=== PATIENT | male | born 1945 | race Caucasian/White ===

== ENCOUNTER 2019-04-13 10:43 | Outpatient (CLI) | payer MEDICARE, OTHER, SELFPAY ==
[2019-04-13 13:26] LABS: Basophils % 0.4 %; Eosinophils # 0.2 10^3/uL (0.0-0.8); Eosinophils % 2.7 %; Hematocrit 38.8 % (42.0-52.0); Hemoglobin 12.3 g/dL (11.7-16.6); Lymphocytes % 13.9 %; Mean Corpuscular HGB Conc 31.7 g/dL (30.0-36.0); Mean Corpuscular Hemoglobin 30.3 pg (28.0-34.0); Mean Corpuscular Volume 95.6 fL (80-94); Mean Platelet Volume 9.4 fL (7.4-10.4); Monocytes # 0.7 10^3/uL (0.2-0.9); Monocytes % 9.7 %; Neutrophils # 5.2 10^3/uL (1.8-7.7); Neutrophils % 72.9 %; Nucleated Red Blood Cells % 0 %; Platelet Count 191 10^3/cmm (130-400); Red Blood Count 4.06 10^6/uL (4.1-5.3); Red Cell Distribution Width 14.3 % (12.1-15.1); White Blood Count 7.1 10^3/uL (4.0-10.0)
[2019-04-13 13:38] LABS: Carcinoembryonic Antigen 2.4 ng/mL (0.0-4.7); Thyroid Stimulating Hormone 1.93 uIU/mL (0.27-4.20)
[2019-04-13 13:59] LABS: Alanine Aminotransferase 23 U/L (0-41); Albumin Level 3.5 g/dL (3.5-5.2); Alkaline Phosphatase 183 IU/L (40-130); Anion Gap 13.9 (5-19); Aspartate Amino Transferase 23 U/L (0-40); Blood Urea Nitrogen 14 mg/dL (8-23); Calcium 9.3 mg/dL (8.5-10.5); Carbon Dioxide 27 mmol/L (22-29); Chloride 102 mmol/L (98-107); Globulin 3.3 g/dL (1.3-4.6); Glucose 96 mg/dL (74-106); Potassium 3.9 mmol/L (3.5-5.1); Sodium 139 mmol/L (136-145); Total Bilirubin 0.6 mg/dL (0.15-1.2); Total Protein 6.8 g/dL (6.6-8.7)
[2019-04-13 14:06] LABS: Cancer Antigen 19 9 9.84 U/mL (0-35)
== END 2019-04-13 10:44 | disposition home or self-care (01) ==
LOC: ONCMED 10:47
PROVIDERS: Family Provider Internal Medicine; PCP Internal Medicine; Visit Provider Nurse Practitioner
DX: C23 Malignant neoplasm of gallbladder (principal); C78.7 Secondary malignant neoplasm of liver and intrahepatic bile duct; C77.2 Secondary and unspecified malignant neoplasm of intra-abdominal lymph nodes; E78.5 Hyperlipidemia, unspecified; I25.10 Atherosclerotic heart disease of native coronary artery without angina pectoris; I34.0 Nonrheumatic mitral (valve) insufficiency; I48.91 Unspecified atrial fibrillation; I11.0 Hypertensive heart disease with heart failure; I50.9 Heart failure, unspecified; J44.9 Chronic obstructive pulmonary disease, unspecified; K21.9 Gastro-esophageal reflux disease without esophagitis; N40.0 Benign prostatic hyperplasia without lower urinary tract symptoms; Z86.73 Personal history of transient ischemic attack (TIA), and cerebral infarction without residual deficits; Z87.891 Personal history of nicotine dependence; Z90.49 Acquired absence of other specified parts of digestive tract; Z92.21 Personal history of antineoplastic chemotherapy; G89.29 Other chronic pain; M47.814 Spondylosis without myelopathy or radiculopathy, thoracic region; Z95.5 Presence of coronary angioplasty implant and graft; Z79.01 Long term (current) use of anticoagulants; Z79.891 Long term (current) use of opiate analgesic; Z79.899 Other long term (current) drug therapy
CPT/HCPCS: 36591; 80053; 82378; 84443; 85025; 86301; 99214

== ENCOUNTER 2019-05-17 13:39 | Outpatient (CLI) | payer MEDICARE, OTHER, SELFPAY ==
[2019-05-17] MEDS: alteplase 1 mg/mL SDV 2 mL 2 MG IV (13:58)
== END 2019-05-17 13:40 | disposition home or self-care (01) ==
LOC: ONCMED 13:39
PROVIDERS: Family Provider Internal Medicine; PCP Internal Medicine; Visit Provider Nurse Practitioner
DX: T82.594A Other mechanical complication of infusion catheter, initial encounter (principal); Y80.1 Therapeutic (nonsurgical) and rehabilitative physical medicine devices associated with adverse incidents
CPT/HCPCS: 36593; 96374; J2997

== ENCOUNTER 2019-06-17 13:11 | Outpatient (CLI) | payer MEDICARE, OTHER, SELFPAY | END 2019-06-17 13:12 | disposition home or self-care (01) | LOC: ONCMED 13:11 | PROVIDERS: Family Provider Internal Medicine; PCP Internal Medicine; Visit Provider Nurse Practitioner | DX: Z45.2 Encounter for adjustment and management of vascular access device (principal) | CPT/HCPCS: 96523 ==

== ENCOUNTER 2019-07-19 14:29 | Outpatient (CLI) | payer OTHER, MEDICARE, SELFPAY | END 2019-07-19 14:30 | disposition home or self-care (01) | LOC: ONCMED 14:31 | PROVIDERS: PCP Internal Medicine; Visit Provider Nurse Practitioner | DX: Z45.2 Encounter for adjustment and management of vascular access device (principal); C23 Malignant neoplasm of gallbladder; C78.7 Secondary malignant neoplasm of liver and intrahepatic bile duct; D64.81 Anemia due to antineoplastic chemotherapy | CPT/HCPCS: 96523 ==

== ENCOUNTER 2019-08-19 12:31 | Outpatient (CLI) | payer MEDICARE, OTHER, SELFPAY | END 2019-08-19 12:32 | disposition home or self-care (01) | LOC: ONCMED 12:35 | PROVIDERS: PCP Internal Medicine; Visit Provider Nurse Practitioner | DX: Z45.2 Encounter for adjustment and management of vascular access device (principal); C23 Malignant neoplasm of gallbladder; C78.7 Secondary malignant neoplasm of liver and intrahepatic bile duct; D64.81 Anemia due to antineoplastic chemotherapy | CPT/HCPCS: 96523 ==

== ENCOUNTER 2019-10-01 09:03 | Outpatient (CLI) | payer MEDICARE, OTHER, SELFPAY ==
--- NOTE | 2019-10-01 10:16 | ONC FU_ITS ---
Dr. Lundberg Patient Follow-Up Note Patient: Foster Durán Unit #: [id number]: 1945 Dicatated By: Erwin Lundberg M.D.Date of Visit:Oct 01, 2019 Onc Med Follow-up/Prog Note Chief Complaint: Gallbladder cancer. History of Present Illness: This is a 72-year-old man with adenocarcinoma of the gallbladder, stage IIIB (T2b, N1, M0) at initial diagnosis in November 2017, but with subsequent progression to stage IV (M1). On 11/27/2017 he underwent laparoscopic cholecystectomy in [place], [place]. I do not have those records available, but the reports from Dr. Ortega indicate that he was incidentally found to have a T2b gallbladder adenocarcinoma. He was then referred to Dr. Ortega. His further evaluation with PET/CT on 12/08/2017 showed hypermetabolic activity in the hepatic parenchyma adjacent to the gallbladder fossa concerning for active malignancy. Bilateral adrenal nodules were noted to be FDG negative, as was a left lower lobe pulmonary nodule. Given those findings on 02/06/2018 he underwent exploratory laparotomy with partial hepatectomy, resection of port sites, omental pedicle flap, portal lymph node dissection, and partial omentectomy. Pathology showed metastatic adenocarcinoma in 1 portal lymph nodes with extracapsular extension present. The partial hepatectomy specimen was negative for malignancy. There was no evidence of involvement at the epigastric, right upper quadrant, and umbilical port sites. A falciform nodule biopsy showed organizing hematoma. I had seen him initially on 03/25/2018. He still had marginal performance status following his surgery, and with his multiple underlying comorbidities I did not recommend adjuvant chemotherapy. His surveillance CT scans of the chest, abdomen, and pelvis on 07/02/2018 showed a 7 mm noncalcified nodule in the left lung base posteriorly. There were innumerable very small nodules throughout both lungs measuring in the range of 1-3 mm, many of which were noted be calcified. The pattern was felt to be suggestive of old granulomatous disease. There was mild mediastinal and right hilar adenopathy noted and multiple subcentimeter mediastinal lymph nodes also were noted. A precarinal lymph node measured 1.2 cm and 3 right hilar lymph nodes were closely adjacent, the largest measuring up to 1.0 cm. Subcentimeter left hilar and subcarinal lymph nodes also were seen. The abdomen showed a new hypodense lesion in the liver at the chacho hepatis measuring 4.8 x 3.3 cm, suspicious for metastatic disease. There is no abdominal or pelvic adenopathy. There were diffuse degenerative changes throughout the thoracic and lumbar spine. Further evaluation with PET/CT on 07/15/2018 showed intense activity within the left hepatic lobe lesion, SUV 9.9, consistent with hepatic metastasis. There were no other areas of metastatic involvement noted on that study. Multiple subcentimeter bilateral pulmonary nodules were too small to evaluate with PET. I had seen him for a follow-up visit on 07/17/2018. A next generation sequencing study showed no targetable mutations. The tumor was found to be MSI stable with intermediate mutation burden. It was negative for PD-L1 expression. He was agreeable to a trial of chemotherapy with cisplatin/gemcitabine. He began cycle 1 on 07/30/2018. He tolerated it with acceptable toxicity, and he continued with cycle 2 on 08/20/2018 and was cycle 3 on 09/09/2018. Restaging CT scans of the chest, abdomen, and pelvis on 09/29/2018 showed unchanged left lower lobe pulmonary nodule measuring 8 mm. A low-attenuation lesion involving the gallbladder appeared stable compared to the June 2018 study, felt to be indeterminate, but with metastatic disease not excluded. Bilateral adrenal nodules appeared unchanged. There was no new adenopathy or other evidence of disease progression. He continued with cycle 4 of cisplatin/gemcitabine on 10/08/2018. Restaging PET/CT on 10/31/2018 showed no change in the hepatic lesion compared to the prior study. Left lower lobe pulmonary nodules were unchanged. With that finding, he was referred to Dr. Ortega, and he underwent directed therapy with Y90 to the left hepatic artery on 12/17/2018 and radioembolization of the right hepatic artery on 01/28/2019. Restaging CT abdomen/pelvis on 05/25/2019 showed evidence of response in the liver and no areas of disease progression. He continued on observation/expectant management. His other medical illnesses include hypertension, dyslipidemia, coronary artery disease, mitral regurgitation, atrial fibrillation, congestive heart failure, carotid stenosis, COPD, GERD, and benign prostatic hypertrophy. He suffered a left hemispheric stroke in February 2018. He has undergone multiple coronary angioplasty procedures and he underwent left carotid artery stent placement in 2018. He has a history of smoking 1 pack of cigarettes daily for 40 years. He quit smoking in 2014. INTERIM HISTORY: Restaging CT of the abdomen/pelvis on 09/20/2019 showed stable subcentimeter left-sided pulmonary nodules, but with development of some new, small subcentimeter nodules, felt to be indeterminate but with neoplastic disease not excluded. There was interval appearance of borderline left hilar lymph nodes. A soft tissue nodule within the right upper quadrant mesentery measured 13 mm compared to 5 mm on the prior study, worrisome for progressive metastatic disease. There was slight interval enlargement of the dominant hepatic mass within segment 4B as well as interval enlargement of a nodule within segment 5. There was interval development of a new segment 4A nodule measuring approximately 10 mm. The findings were suspicious for slight progression of hepatic metastases. He is seen for a followup visit. He says he feels pretty good. He does have somewhat limited activity, but he is able to do light work when it is not too hot. ECOG score is 1. He has good appetite. He has not had fever. He does have some night sweating, but not as bad. He has been having pain in his lower back area. It has been an ongoing problem since this thing started . He also has pain in his abdomen on the right side. It occurs intermittently, and when he gets to bothering him enough he takes his antibiotic for a few days and it tends to clear up. He has no other GI or complaints. He does have shortness of breath, which he manages adequately with an inhaler. He also has some cough. He does not complain of chest pain. He has no other joint or bone pain. He very seldom has headache. He sometimes has dizziness after he takes his medication. He does not have numbness/paresthesia or other focal neurologic symptoms. Medications: ALPRAZolam 1 Tablet (of 0.25 mg) Oral PRN, AmLODIPine Besylate 1 Tablet (of 5 mg) Oral b.i.d. PRN, Digoxin 1 Tablet (of 125 mcg) Oral daily, Eliquis 1 Tablet (of 5 mg) Oral b.i.d., Finasteride 1 Tablet (of 5 mg) Oral daily, HYDROcodone-Acetaminophen 1 Tablet (of 7.5-325 mg) Oral q 6 hours PRN, Lisinopril 1 Tablet (of 10 mg) Oral b.i.d., Metoprolol Tartrate 2 Tablet (of 50 mg) Oral b.i.d., Nitroglycerin 1 Tablet (of 0.4 mg) Tablet, sublingual Sublingual PRN, Symbicort 1 puff(s) (of 160-4.5 mcg/act) Aerosol Inhalation b.i.d., Tamsulosin HCl 1 Capsule (of 0.4 mg) Oral b.i.d., Ventolin HFA 1 puff(s) (of 108 (90 base) mcg/act) Aerosol, solution Inhalation PRN Allergies: Statins Review of Systems: Constitutional - He has limited activity, but he is able to do light work. His appetite is good. He has lost about 10 pounds. He has not had fever. He does have some sweating at night, but not as bad. ECOG score is 1, ENMT - No sinus congestion/drainage. He sometimes has sore mouth. No sore throat or difficulty swallowing, Hematologic/Lymphatic - No abnormal bruising or bleeding, Respiratory - He has shortness of breath and cough. No pleuritic pain or hemoptysis, Cardiovascular - No angina pain. No palpitations, Gastrointestinal - He has pain on the right side of the abdomen. No nausea or vomiting. He has some acid reflux. No diarrhea or constipation. No blood in the stool or black stools, Genitourinary (M) - No dysuria or hematuria. No urinary frequency. No urgency or incontinence, Musculoskeletal - He has lower back pain, Integumentary - No skin rash, Neurologic - He very seldon has headache. He sometimes has dizziness after taking his medications. No numbness or tingling. No other focal neurologic symptoms, Psychiatric - No anxiety or depression. No insomnia. Vital Signs: Performed on Oct 01, 2019 09:15 Height - 74.00 in Weight - 247.6 lbs (LOW) BSA - 2.38 sq.m BMI - 31.79 (HIGH) Temperature - 97.1 F (LOW) Pulse - 82 /min Respiration - 18 /min BP - 155/88 mm(hg) (HIGH) O2 Sat - 96 % Pain - 0 Physical Examination: Constitutional - He looks pretty good generally, Eyes - Sclerae nonicteric. Conjunctivae clear, ENMT - No lesions noted in the oral cavity, Hematologic/Lymphatic - No cervical, clavicular, or axillary adenopathy, Respiratory - Lungs are clear with diminished air movement bilaterally, Cardiovascular - Heart rhythm is irregular. There is a II/ systolic murmur. There is no gallop or rub noted. , Abdomen - Mildly distended. There is mild tenderness on the right side medially. Liver and spleen are not enlarged. There is no abdominal mass or ascites noted and there is no inguinal adenopathy, Extremities - No edema. There are a few scattered purpuric lesions on the arms, Integumentary - No skin eruption, Neurologic - There are no focal neurologic deficits noted. Impression: 1. Patient with adenocarcinoma of the gallbladder, initially stage IIB (T2, N1, M0) at laparoscopic cholecystectomy on 11/27/2017. 2. He underwent exploratory laparotomy with partial hepatectomy, resection of port sites, partial omenectomy, and portal lymph node dissection on 02/06/2018. Pathology showed involvement in 1/1 lymph nodes with extracapsular extension, but it was otherwise negative. His next generation sequencing study showed no targeted both mutations. The tumor was MSI stable with low PD-L1 expression. 3. His postoperative course was complicated by left temporal parietal stroke on 02/18/2018. His other medical illnesses include: 4. Hypertension. 5. Dyslipidemia. 6. Coronary artery disease with previous myocardial infarction and multiple angioplasty/stent procedures. 7. Atrial fibrillation. 8. Mitral regurgitation. 9. Congestive heart failure. 10. Carotid stenosis with previous left carotid stent placement. 11. COPD. 12. GERD. 13. Benign prostatic hypertrophy. His surveillance CT scans on 07/02/2018 showed a new low attenuation lesion within the liver at the chacho hepatis measuring 4.8 x 3.3 cm, suspicious for metastasis. The lesion was found to be FDG avid by PET, SUV 9.9, also suspicious for metastasis. There were no other areas of abnormal uptake on that study. Multiple small bilateral pulmonary nodules were too small to characterize by PET, but felt to most likely reflect old granulomatous disease. He underwent a course of chemotherapy with 4 cycles of cisplatin/gemcitabine from July through October 2016. He tolerated the treatment very well. Restaging PET/CT on 10/31/2018 showed no change in the hepatic lesion compared to the prior study. Left lower lobe pulmonary nodules were unchanged. With that finding, he was referred to Dr. Ortega, and he underwent liver directed therapy with Y90 to the left hepatic artery on 12/17/2018 and radioembolization of the right hepatic artery on 01/28/2019. Restaging CT abdomen/pelvis on 05/25/2019 showed evidence of response in the liver and no areas of disease progression. His restaging CT abdomen/pelvis on 09/20/2019 was suspicious for disease progression with development of some new, small, subcentimeter pulmonary nodules in the left lung, development of borderline left hilar lymphadenopathy, increase in size of a mesenteric soft tissue nodule, slight progression of the previously treated hepatic lesions, and development of a new segment 4A nodule measuring 10 mm. Plan: The CT findings were reviewed with the patient and his , and we discussed the clinical implications. While the findings are somewhat subtle, taken together they are very suspicious for disease progression. He would still appear, though, to have a low burden of disease, and it is unlikely to be the cause of his symptoms. Nonetheless, in the setting of metastatic disease which is now progressing, his disease is incurable and any further treatment will be palliative. As such, I do not feel there is any urgency about starting a second line chemotherapy. The best options would either be modified FOLFOX or oxaliplatin/Xeloda. I reviewed potential side effects, including the expected neuropathy with oxaliplatin. At least for now I would like to request the CT disks for review, and we can then determine whether to go ahead and start second line chemotherapy within the timeframe of the next 2 to 3 weeks or just monitor his disease closely with a repeat CT scan in 1 to 2 months. Signed By: Erwin Lundberg M.D. <<Signature on File>>
== END 2019-10-01 09:04 | disposition home or self-care (01) ==
LOC: ONCMED 09:07
PROVIDERS: PCP Internal Medicine; Visit Provider Internal Medicine Medical Oncology
DX: C23 Malignant neoplasm of gallbladder (principal); C78.7 Secondary malignant neoplasm of liver and intrahepatic bile duct; D64.81 Anemia due to antineoplastic chemotherapy; E78.5 Hyperlipidemia, unspecified; I25.10 Atherosclerotic heart disease of native coronary artery without angina pectoris; I25.2 Old myocardial infarction; I48.91 Unspecified atrial fibrillation; I34.0 Nonrheumatic mitral (valve) insufficiency; I50.9 Heart failure, unspecified; J44.9 Chronic obstructive pulmonary disease, unspecified; K21.9 Gastro-esophageal reflux disease without esophagitis; N40.0 Benign prostatic hyperplasia without lower urinary tract symptoms; Z95.5 Presence of coronary angioplasty implant and graft; Z45.2 Encounter for adjustment and management of vascular access device; Z90.49 Acquired absence of other specified parts of digestive tract; R91.8 Other nonspecific abnormal finding of lung field; I11.0 Hypertensive heart disease with heart failure; Z86.73 Personal history of transient ischemic attack (TIA), and cerebral infarction without residual deficits; Z87.891 Personal history of nicotine dependence; Z79.891 Long term (current) use of opiate analgesic; R59.0 Localized enlarged lymph nodes
CPT/HCPCS: 96523; 99214

== ENCOUNTER 2019-10-28 13:38 | Outpatient (CLI) | payer MEDICARE, SELFPAY | END 2019-10-28 13:39 | disposition home or self-care (01) | LOC: ONCMED 13:41 | PROVIDERS: PCP Internal Medicine; Visit Provider Nurse Practitioner | DX: Z45.2 Encounter for adjustment and management of vascular access device (principal) | CPT/HCPCS: 96523 ==

== ENCOUNTER 2019-12-09 13:01 | Outpatient (CLI) | payer MEDICARE, OTHER, SELFPAY ==
[2019-12-09 14:53] LABS: Basophils # 0.1 10^3/uL (0.0-0.1); Basophils % 0.7 %; Eosinophils # 0.2 10^3/uL (0.0-0.8); Eosinophils % 2.4 %; Hematocrit 41.6 % (42.0-52.0); Hemoglobin 13.1 g/dL (11.7-16.6); Lymphocytes # 0.9 10^3/uL (0.8-4.8); Lymphocytes % 12.6 %; Mean Corpuscular HGB Conc 31.5 g/dL (30.0-36.0); Mean Corpuscular Hemoglobin 31.4 pg (28.0-34.0); Mean Corpuscular Volume 99.8 fL (80-94); Monocytes # 0.7 10^3/uL (0.2-0.9); Monocytes % 10.1 %; Neutrophils % 73.9 %; Nucleated Red Blood Cells % 0 %; Platelet Count 189 10^3/cmm (130-400); Red Blood Count 4.17 10^6/uL (4.1-5.3); Red Cell Distribution Width 14.1 % (12.1-15.1)
[2019-12-09 15:40] LABS: Alanine Aminotransferase 121 U/L (0-41); Albumin Level 3.4 g/dL (3.5-5.2); Alkaline Phosphatase 464 IU/L (40-130); Anion Gap 12.7 (5-19); Aspartate Amino Transferase 106 U/L (0-40); Blood Urea Nitrogen 14 mg/dL (8-23); Calcium 8.5 mg/dL (8.5-10.5); Carbon Dioxide 27 mmol/L (22-29); Chloride 104 mmol/L (98-107); Glucose 107 mg/dL (65-115); Osmolality Calculated 291 mOsm/kg (285-295); Potassium 3.7 mmol/L (3.5-5.1); Sodium 140 mmol/L (136-145); Thyroid Stimulating Hormone 0.96 uIU/mL (0.27-4.20); Total Bilirubin 2.9 mg/dL (0.15-1.2); Total Protein 6.4 g/dL (6.6-8.7); Vitamin B12 755 pg/mL (232-1245)
--- NOTE | 2019-12-12 11:50 | ONC FU_ITS ---
Dr. Lundberg Patient Follow-Up Note Patient: Foster Durán Unit #: [id number]: 1945 Dicatated By: Erwin Lundberg M.D.Date of Visit:Dec 09, 2019 Onc Med Follow-up/Prog Note Chief Complaint: Gallbladder cancer. History of Present Illness: This is a 73 year-old man with adenocarcinoma of the gallbladder, stage IIIB (T2b, N1, M0) at initial diagnosis in November 2017, but with subsequent progression to stage IV (M1). On 11/27/2017 he underwent laparoscopic cholecystectomy in [place], [place]. I do not have those records available, but the reports from Dr. Ortega indicate that he was incidentally found to have a T2b gallbladder adenocarcinoma. He was then referred to Dr. Ortega. His further evaluation with PET/CT on 12/08/2017 showed hypermetabolic activity in the hepatic parenchyma adjacent to the gallbladder fossa concerning for active malignancy. Bilateral adrenal nodules were noted to be FDG negative, as was a left lower lobe pulmonary nodule. Given those findings on 02/06/2018 he underwent exploratory laparotomy with partial hepatectomy, resection of port sites, omental pedicle flap, portal lymph node dissection, and partial omentectomy. Pathology showed metastatic adenocarcinoma in 1 portal lymph nodes with extracapsular extension present. The partial hepatectomy specimen was negative for malignancy. There was no evidence of involvement at the epigastric, right upper quadrant, and umbilical port sites. A falciform nodule biopsy showed organizing hematoma. I had seen him initially on 03/25/2018. He still had marginal performance status following his surgery, and with his multiple underlying comorbidities I did not recommend adjuvant chemotherapy. His surveillance CT scans of the chest, abdomen, and pelvis on 07/02/2018 showed a 7 mm noncalcified nodule in the left lung base posteriorly. There were innumerable very small nodules throughout both lungs measuring in the range of 1-3 mm, many of which were noted be calcified. The pattern was felt to be suggestive of old granulomatous disease. There was mild mediastinal and right hilar adenopathy noted and multiple subcentimeter mediastinal lymph nodes also were noted. A precarinal lymph node measured 1.2 cm and 3 right hilar lymph nodes were closely adjacent, the largest measuring up to 1.0 cm. Subcentimeter left hilar and subcarinal lymph nodes also were seen. The abdomen showed a new hypodense lesion in the liver at the chacho hepatis measuring 4.8 x 3.3 cm, suspicious for metastatic disease. There is no abdominal or pelvic adenopathy. There were diffuse degenerative changes throughout the thoracic and lumbar spine. Further evaluation with PET/CT on 07/15/2018 showed intense activity within the left hepatic lobe lesion, SUV 9.9, consistent with hepatic metastasis. There were no other areas of metastatic involvement noted on that study. Multiple subcentimeter bilateral pulmonary nodules were too small to evaluate with PET. I had seen him for a follow-up visit on 07/17/2018. A next generation sequencing study showed no targetable mutations. The tumor was found to be MSI stable with intermediate mutation burden. It was negative for PD-L1 expression. He was agreeable to a trial of chemotherapy with cisplatin/gemcitabine. He began cycle 1 on 07/30/2018. He tolerated it with acceptable toxicity, and he continued with cycle 2 on 08/20/2018 and was cycle 3 on 09/09/2018. Restaging CT scans of the chest, abdomen, and pelvis on 09/29/2018 showed unchanged left lower lobe pulmonary nodule measuring 8 mm. A low-attenuation lesion involving the gallbladder appeared stable compared to the June 2018 study, felt to be indeterminate, but with metastatic disease not excluded. Bilateral adrenal nodules appeared unchanged. There was no new adenopathy or other evidence of disease progression. He continued with cycle 4 of cisplatin/gemcitabine on 10/08/2018. Restaging PET/CT on 10/31/2018 showed no change in the hepatic lesion compared to the prior study. Left lower lobe pulmonary nodules were unchanged. With that finding, he was referred to Dr. Ortega, and he underwent directed therapy with Y90 to the left hepatic artery on 12/17/2018 and radioembolization of the right hepatic artery on 01/28/2019. Restaging CT abdomen/pelvis on 05/25/2019 showed evidence of response in the liver and no areas of disease progression. He continued on observation/expectant management. His other medical illnesses include hypertension, dyslipidemia, coronary artery disease, mitral regurgitation, atrial fibrillation, congestive heart failure, carotid stenosis, COPD, GERD, and benign prostatic hypertrophy. He suffered a left hemispheric stroke in February 2018. He has undergone multiple coronary angioplasty procedures and he underwent left carotid artery stent placement in 2018. He has a history of smoking 1 pack of cigarettes daily for 40 years. He quit smoking in 2014. INTERIM HISTORY: Restaging CT of the abdomen/pelvis on 09/20/2019 showed stable subcentimeter left-sided pulmonary nodules, but with development of some new, small subcentimeter nodules, felt to be indeterminate but with neoplastic disease not excluded. There was interval appearance of borderline left hilar lymph nodes. A soft tissue nodule within the right upper quadrant mesentery measured 13 mm compared to 5 mm on the prior study, worrisome for progressive metastatic disease. There was slight interval enlargement of the dominant hepatic mass within segment 4B as well as interval enlargement of a nodule within segment 5. There was interval development of a new segment 4A nodule measuring approximately 10 mm. The findings were suspicious for slight progression of hepatic metastases. However, as those changes did appear to be very subtle, I had recommended that we initially continue observation/expectant management. He is seen for a followup visit. He has not been feeling as good. His main complaint is he has been having a lot of stomach issues, mainly pain in his upper abdomen on the right side which radiates downward. The pain appears to be associated with with an incisional hernia in the medial right upper quadrant. It does tend to be aggravated by eating, but sometimes it lasts all day and even into the night. He has some nausea with it, but no vomiting. Bowel function has been adequate. He also has been having pain continuously in the pit of his back on both sides. That pain has been getting steadily worse. He has limited activity. ECOG score is 2. Appetite has not been good. His weight is down 5 pounds. He does not have fever. He has had some sweating at night. He has shortness of breath with activity. He also has some cough. He does not complain of chest pain. Bladder function remains adequate. He also has a little arthritis pain. He has been having headaches in the mormonism area. He occasionally has dizziness. He has no focal neurologic symptoms. Medications: ALPRAZolam 1 Tablet (of 0.25 mg) Oral PRN, AmLODIPine Besylate 1 Tablet (of 5 mg) Oral b.i.d. PRN, Digoxin 1 Tablet (of 125 mcg) Oral daily, Eliquis 1 Tablet (of 5 mg) Oral b.i.d., Finasteride 1 Tablet (of 5 mg) Oral daily, HYDROcodone-Acetaminophen 1 Tablet (of 7.5-325 mg) Oral q 6 hours PRN, Lisinopril 1 Tablet (of 10 mg) Oral b.i.d., Metoprolol Tartrate 2 Tablet (of 50 mg) Oral b.i.d., Nitroglycerin 1 Tablet (of 0.4 mg) Tablet, sublingual Sublingual PRN, Protonix 1 Capsule (of 20 mg) Tablet, enteric coated Oral daily, Symbicort 1 puff(s) (of 160-4.5 mcg/act) Aerosol Inhalation b.i.d., Tamsulosin HCl 1 Capsule (of 0.4 mg) Oral b.i.d., Ventolin HFA 1 puff(s) (of 108 (90 base) mcg/act) Aerosol, solution Inhalation PRN Allergies: Statins Review of Systems: Constitutional - His energy is not been good. He has limited activity. Appetite also has not been good. His weight is down 5 pounds. He has not had fever. He does have sweating at night. ECOG score is 2, ENMT - He has sinus congestion/drainage. No mouth sores. No sore throat or difficulty swallowing, Hematologic/Lymphatic - He has easy bruising, Respiratory - He has some shortness of breath. He has cough, which is about the same. No pleuritic pain or hemoptysis, Cardiovascular - No angina pain. No palpitations, Gastrointestinal - He has been having nausea. He has pain in his upper abdomen on the right side which radiates downward. It is worse after eating, but it can last all day and into the night. No heartburn or acid reflux. No diarrhea or constipation. No blood in the stool or black stools, Genitourinary (M) - No dysuria or hematuria. No urinary frequency. No urgency or incontinence, Musculoskeletal - He has a little arthritis pain, Integumentary - No skin rash, Neurologic - He has been having headaches in the mormonism area. He occasionally has dizziness. No numbness or tingling. No other focal neurologic symptoms, Psychiatric - He has anxiety. No depression. No insomnia. Vital Signs: Performed on Dec 09, 2019 13:05 Height - 74.00 in Weight - 242.8 lbs (LOW) BSA - 2.36 sq.m BMI - 31.17 (HIGH) Temperature - 97.7 F (LOW) Pulse - 78 /min Respiration - 24 /min BP - 169/112 mm(hg) (HIGH) O2 Sat - 96 % Pain - 6 Physical Examination: Constitutional - He still looks pretty good generally, Eyes - Sclerae nonicteric. Conjunctivae clear, ENMT - No lesions noted in the oral cavity, Hematologic/Lymphatic - No cervical, clavicular, or axillary adenopathy, Respiratory - Lungs are clear with diminished air movement bilaterally, Cardiovascular - Heart rhythm is irregular. There is a II/ systolic murmur. There is no gallop or rub noted. , Abdomen - Mildly distended. There is mild tenderness on the right upper quadrant medially in the area of an incisional hernia. Liver and spleen are not enlarged. There is no abdominal mass or ascites noted and there is no inguinal adenopathy, Back/Spine - There is bony tenderness in the lower thoracic/upper lumbar spine area, Extremities - No edema. He has chronic purpura, Integumentary - No skin eruption, Neurologic - There are no focal neurologic deficits noted. Lab/Imaging: Test performed on Dec 09, 2019 13:55 Sodium 140 mmol/L TSH 0.96 uIU/mL Vitamin B12 755 pg/mL Potassium 3.7 mmol/L Chloride 104 mmol/L CO2 27 mmol/L Anion Gap 12.7 BUN 14 mg/dL Creatinine 1.3 mg/dL Cr Clearance (Est) 86.3400 mL/min Glucose 107 mg/dL Osmolality - Calculated 291 mOsm/kg Calcium 8.5 mg/dL Protein, Total 6.4 g/dL Albumin 3.4 g/dL Globulin 3.0 g/dL Bilirubin, Total 2.9 mg/dL ALT (SGPT) 121 U/L AST (SGOT) 106 U/L Alkaline Phosphatase 464 IU/L WBC 7.0 10 3/uL RBC 4.17 10 6/uL HGB 13.1 g/dL HCT 41.6 % MCV 99.8 fL MCH 31.4 pg MCHC 31.5 g/dL RDW 14.1 % Platelet Count 189 10 3/cmm MPV 11.0 fL Neutrophils 5.20 10 3/uL Lymphocytes 0.9 10 3/uL Monocytes 0.7 10 3/uL Eosinophils 0.2 10 3/uL Basophils 0.1 10 3/uL Neutrophil % 73.9 % Lymphocyte % 12.6 % Monocyte % 10.1 % Eosinophil % 2.4 % Basophils % 0.7 % NRBC % 0 % Impression: 1. Patient with adenocarcinoma of the gallbladder, initially stage IIB (T2, N1, M0) at laparoscopic cholecystectomy on 11/27/2017. 2. He underwent exploratory laparotomy with partial hepatectomy, resection of port sites, partial omenectomy, and portal lymph node dissection on 02/06/2018. Pathology showed involvement in 1/1 lymph nodes with extracapsular extension, but it was otherwise negative. His next generation sequencing study showed no targeted both mutations. The tumor was MSI stable with low PD-L1 expression. 3. His postoperative course was complicated by left temporal parietal stroke on 02/18/2018. His other medical illnesses include: 4. Hypertension. 5. Dyslipidemia. 6. Coronary artery disease with previous myocardial infarction and multiple angioplasty/stent procedures. 7. Atrial fibrillation. 8. Mitral regurgitation. 9. Congestive heart failure. 10. Carotid stenosis with previous left carotid stent placement. 11. COPD. 12. GERD. 13. Benign prostatic hypertrophy. His surveillance CT scans on 07/02/2018 showed a new low attenuation lesion within the liver at the chacho hepatis measuring 4.8 x 3.3 cm, suspicious for metastasis. The lesion was found to be FDG avid by PET, SUV 9.9, also suspicious for metastasis. There were no other areas of abnormal uptake on that study. Multiple small bilateral pulmonary nodules were too small to characterize by PET, but felt to most likely reflect old granulomatous disease. He underwent a course of chemotherapy with 4 cycles of cisplatin/gemcitabine from July through October 2016. He tolerated the treatment very well. Restaging PET/CT on 10/31/2018 showed no change in the hepatic lesion compared to the prior study. Left lower lobe pulmonary nodules were unchanged. With that finding, he was referred to Dr. Ortega, and he underwent liver directed therapy with Y90 to the left hepatic artery on 12/17/2018 and radioembolization of the right hepatic artery on 01/28/2019. Restaging CT abdomen/pelvis on 05/25/2019 showed evidence of response in the liver and no areas of disease progression. His restaging CT abdomen/pelvis on 09/20/2019 was suspicious for disease progression with development of some new, small, subcentimeter pulmonary nodules in the left lung, development of borderline left hilar lymphadenopathy, increase in size of a mesenteric soft tissue nodule, slight progression of the previously treated hepatic lesions, and development of a new segment 4A nodule measuring 10 mm. As those changes did appear to be very subtle, I had initially recommended that we continue on observation/expectant management. Since then his abdominal pain has continued to worsen but he also now has worsening back pain. He does appear to be showing declining performance status. He also has elevated blood pressure. Plan: He will have laboratory studies and port flush today, and he will be scheduled for restaging CT scans of the chest, abdomen, and pelvis. He will have further evaluation as indicated. In the meantime, he is advised to increase metoprolol to 75 mg twice daily. Signed By: Erwin Lundberg M.D. <<Signature on File>>
== END 2019-12-09 13:02 | disposition home or self-care (01) ==
LOC: ONCMED 13:04
PROVIDERS: PCP Internal Medicine; Visit Provider Internal Medicine Medical Oncology
DX: C23 Malignant neoplasm of gallbladder (principal); C78.7 Secondary malignant neoplasm of liver and intrahepatic bile duct; D64.81 Anemia due to antineoplastic chemotherapy; T45.1X5A Adverse effect of antineoplastic and immunosuppressive drugs, initial encounter; I10 Essential (primary) hypertension; E78.5 Hyperlipidemia, unspecified; I25.10 Atherosclerotic heart disease of native coronary artery without angina pectoris; Z95.5 Presence of coronary angioplasty implant and graft; I48.91 Unspecified atrial fibrillation; I34.0 Nonrheumatic mitral (valve) insufficiency; I50.9 Heart failure, unspecified; I65.23 Occlusion and stenosis of bilateral carotid arteries; J44.9 Chronic obstructive pulmonary disease, unspecified; K21.9 Gastro-esophageal reflux disease without esophagitis; N40.0 Benign prostatic hyperplasia without lower urinary tract symptoms; Z92.21 Personal history of antineoplastic chemotherapy; Z79.899 Other long term (current) drug therapy
CPT/HCPCS: 36591; 80053; 82607; 84443; 85025; 99214

== ENCOUNTER 2019-12-15 06:13 | Outpatient (CLI) | payer MEDICARE, OTHER, SELFPAY ==
--- NOTE | 2019-12-15 07:23 | CT_ITS ---
WS: [id number] CT CHEST, ABDOMEN, AND PELVIS TECHNIQUE: Contrast-enhanced CT of the chest, abdomen, and pelvis with coronal and sagittal reformatt ed images. CLINICAL INFORMATION: ANEMIA, NEOPLASM OF LIVER AND GB COMPARISON: September 13, 2019, , PET/CT October 31, 2018 DLP: 2295.[address] scans at [facility] use at least one of these dose optimization techniques: automat ed exposure control; mA and/or kV adjustment per patient size (includes targeted exams where dose is matched to clinical indication); or iterative reconstruction. CT CHEST: Moderate chronic emphysematous changes. No acute pulmonary infiltrates. No consolidation or pleural f luid. Tiny calcified granulomas. Additional noncalcified tiny 4 mm pulmonary nodule left lower lobe is new from 2018 but stable from J [id number]. Left lower lobe 8 mm pulmonary nodule is unchanged. No mediastinal or hilar lymphadenopathy. Vascular calcification including coronary. Hypertrophic jaquez ges thoracic spine. CT ABDOMEN AND PELVIS: Prior cholecystectomy for gallbladder carcinoma. Portal vein and splenic vein are patent. Low-attenuation change adjacent to the gallbladder fossa with heterogeneous enhancement has progress ed since the prior examination suspicious for progressive metastatic disease. Enhancing hepatic lesio n measures 3.9 x 4.2 cm. Additional low-attenuation lesion in the dome the liver also appears progres sed measuring 2.5CCM. Diffuse fatty infiltration the liver. Mild intrahepatic biliary duct dilatation appears slightly progressed. Stable bilateral adrenal nodules. Normal GE junction. Mild fatty atrophy of the pancreas. Normal sple en. Normal caliber abdominal aorta. Aortic calcification. No evidence of small or large bowel obstruction. Enlarged prostate. Right renal cortical atrophy. Sma ll right renal cyst. Normal left renal parenchymal enhancement. No periaortic or pelvic lymphadenopat hy. No other significant changes from previous. Hypertrophic changes thoracic and lumbar spine. CT/CT chest abd pel w con* IMPRESSION: 1. Progressed hepatic lesions adjacent to the gallbladder fossae dome the live r suspicious for progressive disease. 2. Intrahepatic biliary ductal dilatation is slightly progressed. 3. Diffuse fatty infiltration the liver. 4. Stable bilateral adrenal nodules. 5. No new adenopathy in the chest abdomen or pelvis. 6. Stable left lower lobe pulmonary nodule measuring 8 mm. 7. Additional noncalcified tiny 4 mm pulmonary nodule left lower lobe is new f rom 2018 but stable from September 13, 2019
[2019-12-15] MEDS: iodixanol 320 mg/mL 100mL Btl IV (08:48)
[2019-12-15] MEDS: iohexol 300 mg/mL 50 mL Btl PO (08:49)
--- NOTE | 2019-12-15 12:34 | ONC FU_ITS ---
Dr. Lundberg Patient Follow-Up Note Patient: Foster Durán Unit #: [id number]: 1945 Dicatated By: Erwin Lundberg M.D.Date of Visit:Dec 15, 2019 Onc Med Follow-up/Prog Note Chief Complaint: Gallbladder cancer. History of Present Illness: This is a 74 year-old man with adenocarcinoma of the gallbladder, stage IIIB (T2b, N1, M0) at initial diagnosis in November 2017, but with subsequent progression to stage IV (M1). On 11/27/2017 he underwent laparoscopic cholecystectomy in [place], [place]. I do not have those records available, but the reports from Dr. Ortega indicate that he was incidentally found to have a T2b gallbladder adenocarcinoma. He was then referred to Dr. Ortega. His further evaluation with PET/CT on 12/08/2017 showed hypermetabolic activity in the hepatic parenchyma adjacent to the gallbladder fossa concerning for active malignancy. Bilateral adrenal nodules were noted to be FDG negative, as was a left lower lobe pulmonary nodule. Given those findings on 02/06/2018 he underwent exploratory laparotomy with partial hepatectomy, resection of port sites, omental pedicle flap, portal lymph node dissection, and partial omentectomy. Pathology showed metastatic adenocarcinoma in 1 portal lymph nodes with extracapsular extension present. The partial hepatectomy specimen was negative for malignancy. There was no evidence of involvement at the epigastric, right upper quadrant, and umbilical port sites. A falciform nodule biopsy showed organizing hematoma. I had seen him initially on 03/25/2018. He still had marginal performance status following his surgery, and with his multiple underlying comorbidities I did not recommend adjuvant chemotherapy. His surveillance CT scans of the chest, abdomen, and pelvis on 07/02/2018 showed a 7 mm noncalcified nodule in the left lung base posteriorly. There were innumerable very small nodules throughout both lungs measuring in the range of 1-3 mm, many of which were noted be calcified. The pattern was felt to be suggestive of old granulomatous disease. There was mild mediastinal and right hilar adenopathy noted and multiple subcentimeter mediastinal lymph nodes also were noted. A precarinal lymph node measured 1.2 cm and 3 right hilar lymph nodes were closely adjacent, the largest measuring up to 1.0 cm. Subcentimeter left hilar and subcarinal lymph nodes also were seen. The abdomen showed a new hypodense lesion in the liver at the chacho hepatis measuring 4.8 x 3.3 cm, suspicious for metastatic disease. There is no abdominal or pelvic adenopathy. There were diffuse degenerative changes throughout the thoracic and lumbar spine. Further evaluation with PET/CT on 07/15/2018 showed intense activity within the left hepatic lobe lesion, SUV 9.9, consistent with hepatic metastasis. There were no other areas of metastatic involvement noted on that study. Multiple subcentimeter bilateral pulmonary nodules were too small to evaluate with PET. I had seen him for a follow-up visit on 07/17/2018. A next generation sequencing study showed no targetable mutations. The tumor was found to be MSI stable with intermediate mutation burden. It was negative for PD-L1 expression. He was agreeable to a trial of chemotherapy with cisplatin/gemcitabine. He began cycle 1 on 07/30/2018. He tolerated it with acceptable toxicity, and he continued with cycle 2 on 08/20/2018 and was cycle 3 on 09/09/2018. Restaging CT scans of the chest, abdomen, and pelvis on 09/29/2018 showed unchanged left lower lobe pulmonary nodule measuring 8 mm. A low-attenuation lesion involving the gallbladder appeared stable compared to the June 2018 study, felt to be indeterminate, but with metastatic disease not excluded. Bilateral adrenal nodules appeared unchanged. There was no new adenopathy or other evidence of disease progression. He continued with cycle 4 of cisplatin/gemcitabine on 10/08/2018. Restaging PET/CT on 10/31/2018 showed no change in the hepatic lesion compared to the prior study. Left lower lobe pulmonary nodules were unchanged. With that finding, he was referred to Dr. Ortega, and he underwent directed therapy with Y90 to the left hepatic artery on 12/17/2018 and radioembolization of the right hepatic artery on 01/28/2019. Restaging CT abdomen/pelvis on 05/25/2019 showed evidence of response in the liver and no areas of disease progression. He continued on observation/expectant management. His other medical illnesses include hypertension, dyslipidemia, coronary artery disease, mitral regurgitation, atrial fibrillation, congestive heart failure, carotid stenosis, COPD, GERD, and benign prostatic hypertrophy. He suffered a left hemispheric stroke in February 2018. He has undergone multiple coronary angioplasty procedures and he underwent left carotid artery stent placement in 2017. He has a history of smoking 1 pack of cigarettes daily for 40 years. He quit smoking in 2014. INTERIM HISTORY: Restaging CT of the abdomen/pelvis on 09/20/2019 showed stable subcentimeter left-sided pulmonary nodules, but with development of some new, small subcentimeter nodules, felt to be indeterminate but with neoplastic disease not excluded. There was interval appearance of borderline left hilar lymph nodes. A soft tissue nodule within the right upper quadrant mesentery measured 13 mm compared to 5 mm on the prior study, worrisome for progressive metastatic disease. There was slight interval enlargement of the dominant hepatic mass within segment 4B as well as interval enlargement of a nodule within segment 5. There was interval development of a new segment 4A nodule measuring approximately 10 mm. The findings were suspicious for slight progression of hepatic metastases. However, as those changes did appear to be very subtle, I had recommended that we initially continue observation/expectant management. He was seen for a follow-up visit on 12/09/2019. At that time he was reporting more pain in his medial right upper quadrant area radiating downward. He had some associated nausea/indigestion. His restaging CT scans on 12/15/2019 showed no change in the left lower lobe pulmonary nodules. There was progression of the enhancing hepatic lesion adjacent to the gallbladder fossa measuring 3.9 x 4.2 cm. The smaller lesion in the dome of the liver had increased to 2.5 cm. There were no new hepatic lesions identified. Bilateral adrenal nodules appeared stable. He is seen today to review the CT results and to discuss further management. Medications: ALPRAZolam 1 Tablet (of 0.25 mg) Oral PRN, AmLODIPine Besylate 1 Tablet (of 5 mg) Oral b.i.d. PRN, Digoxin 1 Tablet (of 125 mcg) Oral daily, Eliquis 1 Tablet (of 5 mg) Oral b.i.d., Finasteride 1 Tablet (of 5 mg) Oral daily, HYDROcodone-Acetaminophen 1 Tablet (of 10-325 mg) Oral q 6 hours PRN, Lisinopril 1 Tablet (of 10 mg) Oral b.i.d., Metoprolol Tartrate 2 Tablet (of 50 mg) Oral b.i.d., Nitroglycerin 1 Tablet (of 0.4 mg) Tablet, sublingual Sublingual PRN, Protonix 1 Capsule (of 20 mg) Tablet, enteric coated Oral daily, Symbicort 1 puff(s) (of 160-4.5 mcg/act) Aerosol Inhalation b.i.d., Tamsulosin HCl 1 Capsule (of 0.4 mg) Oral b.i.d., Ventolin HFA 1 puff(s) (of 108 (90 base) mcg/act) Aerosol, solution Inhalation PRN Allergies: Statins Vital Signs: Performed on Dec 15, 2019 09:46 Height - 74.00 in Weight - 238.8 lbs (LOW) BSA - 2.34 sq.m BMI - 30.66 (HIGH) Temperature - 98.6 F Pulse - 98 /min Respiration - 24 /min BP - 222/105 mm(hg) (HIGH) O2 Sat - 96 % Pain - 9 Lab/Imaging: Test performed on Dec 09, 2019 13:55 Sodium 140 mmol/L TSH 0.96 uIU/mL Vitamin B12 755 pg/mL Potassium 3.7 mmol/L Chloride 104 mmol/L CO2 27 mmol/L Anion Gap 12.7 BUN 14 mg/dL Creatinine 1.3 mg/dL Cr Clearance (Est) 86.3400 mL/min Glucose 107 mg/dL Osmolality - Calculated 291 mOsm/kg Calcium 8.5 mg/dL Protein, Total 6.4 g/dL Albumin 3.4 g/dL Globulin 3.0 g/dL Bilirubin, Total 2.9 mg/dL ALT (SGPT) 121 U/L AST (SGOT) 106 U/L Alkaline Phosphatase 464 IU/L WBC 7.0 10 3/uL RBC 4.17 10 6/uL HGB 13.1 g/dL HCT 41.6 % MCV 99.8 fL MCH 31.4 pg MCHC 31.5 g/dL RDW 14.1 % Platelet Count 189 10 3/cmm MPV 11.0 fL Neutrophils 5.20 10 3/uL Lymphocytes 0.9 10 3/uL Monocytes 0.7 10 3/uL Eosinophils 0.2 10 3/uL Basophils 0.1 10 3/uL Neutrophil % 73.9 % Lymphocyte % 12.6 % Monocyte % 10.1 % Eosinophil % 2.4 % Basophils % 0.7 % NRBC % 0 % Impression: 1. Patient with adenocarcinoma of the gallbladder, initially stage IIB (T2, N1, M0) at laparoscopic cholecystectomy on 11/27/2017. 2. He underwent exploratory laparotomy with partial hepatectomy, resection of port sites, partial omenectomy, and portal lymph node dissection on 02/06/2018. Pathology showed involvement in 1/1 lymph nodes with extracapsular extension, but it was otherwise negative. His next generation sequencing study showed no targeted both mutations. The tumor was MSI stable with low PD-L1 expression. 3. His postoperative course was complicated by left temporal parietal stroke on 02/18/2018. His other medical illnesses include: 4. Hypertension. 5. Dyslipidemia. 6. Coronary artery disease with previous myocardial infarction and multiple angioplasty/stent procedures. 7. Atrial fibrillation. 8. Mitral regurgitation. 9. Congestive heart failure. 10. Carotid stenosis with previous left carotid stent placement. 11. COPD. 12. GERD. 13. Benign prostatic hypertrophy. His surveillance CT scans on 07/02/2018 showed a new low attenuation lesion within the liver at the chacho hepatis measuring 4.8 x 3.3 cm, suspicious for metastasis. The lesion was found to be FDG avid by PET, SUV 9.9, also suspicious for metastasis. There were no other areas of abnormal uptake on that study. Multiple small bilateral pulmonary nodules were too small to characterize by PET, but felt to most likely reflect old granulomatous disease. He underwent a course of chemotherapy with 4 cycles of cisplatin/gemcitabine from July through October 2016. He tolerated the treatment very well. Restaging PET/CT on 10/31/2018 showed no change in the hepatic lesion compared to the prior study. Left lower lobe pulmonary nodules were unchanged. With that finding, he was referred to Dr. Ortega, and he underwent liver directed therapy with Y90 to the left hepatic artery on 12/17/2018 and radioembolization of the right hepatic artery on 01/28/2019. Restaging CT abdomen/pelvis on 05/25/2019 showed evidence of response in the liver and no areas of disease progression. His restaging CT abdomen/pelvis on 09/20/2019 was suspicious for disease progression with development of some new, small, subcentimeter pulmonary nodules in the left lung, development of borderline left hilar lymphadenopathy, increase in size of a mesenteric soft tissue nodule, slight progression of the previously treated hepatic lesions, and development of a new segment 4A nodule measuring 10 mm. As those changes did appear to be very subtle, I had initially recommended that we continue on observation/expectant management. He now has developed worsening pain in his right upper quadrant area medially. His restaging CT scans show progression of the dominant hepatic lesion near the gallbladder fossa and of the smaller lesion in the dome of the liver. However, the small pulmonary nodules have remained stable, and thus far there is no evidence of any other disease progression. Plan: The CT results were reviewed with the patient and his , I also reviewed the CT images from today and from the previous studies in September 2019. There has been definite progression of disease at 2 sites in the liver, but with no other obvious areas of progression. I discussed this with Dr. Ortega. As we have very limited options for further chemotherapy, he will be reevaluated for possible ablation or other liver directed therapy. [id number] time with the patient was more than 30 minutes, greater than 50% spent in counseling/discussion. Signed By: Erwin Lundberg M.D. <<Signature on File>>
== END 2019-12-15 06:14 | disposition home or self-care (01) ==
LOC: ONCMED 06:15
PROVIDERS: PCP Internal Medicine; Visit Provider Internal Medicine Medical Oncology
DX: C23 Malignant neoplasm of gallbladder (principal); C77.2 Secondary and unspecified malignant neoplasm of intra-abdominal lymph nodes; C78.7 Secondary malignant neoplasm of liver and intrahepatic bile duct; R91.8 Other nonspecific abnormal finding of lung field; E78.5 Hyperlipidemia, unspecified; I25.10 Atherosclerotic heart disease of native coronary artery without angina pectoris; I25.2 Old myocardial infarction; I48.91 Unspecified atrial fibrillation; I11.0 Hypertensive heart disease with heart failure; I50.9 Heart failure, unspecified; J44.9 Chronic obstructive pulmonary disease, unspecified; K21.9 Gastro-esophageal reflux disease without esophagitis; N40.0 Benign prostatic hyperplasia without lower urinary tract symptoms; Z95.5 Presence of coronary angioplasty implant and graft; Z86.73 Personal history of transient ischemic attack (TIA), and cerebral infarction without residual deficits
CPT/HCPCS: 71260; 74177; 99214; Q9967

== ENCOUNTER 2019-12-30 08:26 | Outpatient (CLI) | payer MEDICARE, OTHER, SELFPAY ==
--- NOTE | 2019-12-30 08:30 | MR_ITS ---
WS: [id number] INDICATION: Gallbladder carcinoma TECHNIQUE: MRI of the abdomen without and with gadolinium enhancement. Multiplanar axial and coronal T1, T2, proton density, and STIR imaging. Multiplanar post gadolinium imaging was obtained with fat s aturation technique. FINDINGS: Comparison multiple prior CT and PET/CT examinations dating back to December 08, [address] includ [address] recent [address] December 15, 2019 Prior cholecystectomy for gallbladder carcinoma. Portal vein and splenic vein appear patent today. Ag ain seen is the heterogeneous enhancing hepatic parenchymal lesion adjacent to the gallbladder fossa measuring approximately 5.2 x 5.0 x 4.3 cm. Enhancement extends into the extrahepatic gallbladder fos sa. Adjacent susceptibility artifact likely postoperative change and fat necrosis in the adjacent mes enteric fat unchanged since 2019. Multiple heterogeneously enhancing adjacent small satellite lesions in both the right and left hepati c lobes about the dominant hepatic lesion described above. Additional enhancing lesion dome the liver measuring 3.1 x 2.7 CM unchanged since the recent CT. A few additional enhancing lesions in the righ t and left hepatic lobes measuring 1.0-1.5 cm. Mild intrahepatic biliary ductal dilatation. Postoperative changes of the pancreas. Stable bilateral adrenal nodules. Right renal cortical atrophy. Right renal cyst. No upper abdominal lymphadenopathy. No other significant changes from previous. MR/MR abdomen wo/w con* [id number] IMPRESSION: 1. History of gallbladder carcinoma with cholecystectomy. 2. Again seen is the dominant hepatic lesion adjacent to the gallbladder fossa measuring 5.2 x 5.0 x 4.3 cm consistent with metastatic disease. Enhancement e xtends into the adjacent extrahepatic gallbladder fossa. 3. Multiple adjacent enhancing satellite nodules about the gallbladder fossa i n both hepatic lobes consistent with metastatic disease. 4. A few additional smaller enhancing lesions in both right and left hepatic l obes measuring 1-1.5 CM. 5. Additional metastatic lesion in the dome of the liver measuring 3.1 x 2.7 c m unchanged since the recent CT. 6. Mild intrahepatic biliary ductal dilatation. 7. Stable bilateral adrenal nodules.
== END 2019-12-30 08:27 | disposition home or self-care (01) ==
PROVIDERS: PCP Internal Medicine; Visit Provider Nurse Practitioner
DX: C23 Malignant neoplasm of gallbladder (principal); E80.6 Other disorders of bilirubin metabolism; C78.7 Secondary malignant neoplasm of liver and intrahepatic bile duct; D44.12 Neoplasm of uncertain behavior of left adrenal gland; D44.11 Neoplasm of uncertain behavior of right adrenal gland; K76.9 Liver disease, unspecified
CPT/HCPCS: 74183; A9579

== ENCOUNTER 2020-01-03 09:44 | Outpatient (CLI) | payer MEDICARE, OTHER, SELFPAY ==
[2020-01-03 10:39] LABS: Alanine Aminotransferase 108 U/L (0-41); Albumin Level 3.2 g/dL (3.5-5.2); Alkaline Phosphatase 429 IU/L (40-130); Aspartate Amino Transferase 131 U/L (0-40); Total Protein 6.2 g/dL (6.6-8.7)
[2020-01-03 11:43] LABS: Total Bilirubin 19.5 mg/dL (0.15-1.2)
== END 2020-01-03 09:45 | disposition home or self-care (01) ==
PROVIDERS: PCP Internal Medicine; Visit Provider Surgery
DX: E80.6 Other disorders of bilirubin metabolism (principal)
CPT/HCPCS: 80076

== ENCOUNTER 2020-01-05 10:45 | Outpatient (CLI) | payer MEDICARE, OTHER, SELFPAY ==
[2020-01-05 11:27] LABS: Alanine Aminotransferase 99 U/L (0-41); Albumin Level 3.1 g/dL (3.5-5.2); Alkaline Phosphatase 422 IU/L (40-130); Aspartate Amino Transferase 126 U/L (0-40); Globulin 2.8 g/dL (1.3-4.6); Total Protein 5.9 g/dL (6.6-8.7)
[2020-01-05 12:11] LABS: Total Bilirubin 21.7 mg/dL (0.15-1.2)
== END 2020-01-05 10:46 | disposition home or self-care (01) ==
PROVIDERS: PCP Internal Medicine; Visit Provider Surgery
DX: E80.6 Other disorders of bilirubin metabolism (principal)
CPT/HCPCS: 80076